=== PATIENT | male | born 1940 | race Caucasian/White ===

== ENCOUNTER 2020-05-12 10:34 | Outpatient (CLI) | payer MEDICARE, SELFPAY ==
--- NOTE | ~2020-05-12 | US_ITS ---
EXAMINATION: US venous doppler LE DATE: 05/12/2020 11:04 INDICATION: Right lower limb swelling TECHNIQUE: Grayscale ultrasound images without and with compression and Doppler ultrasound images of the right lower extremity veins were obtained. COMPARISON: None. FINDINGS: The visualized portions of right common femoral vein, profunda (deep) femoral vein, femoral vein, pop liteal vein, peroneal trunk, posterior tibial veins, peroneal veins, gastrocnemius vein and greater s aphenous vein outflow are patent. IMPRESSION: 1. No deep venous thrombosis in the right lower limb. Reviewed, dictated and finalized at location B. OPENER
== END 2020-05-12 10:35 | disposition home or self-care (01) ==
PROVIDERS: Family Provider Internal Medicine; PCP Internal Medicine; Visit Provider Internal Medicine
DX: M79.89 Other specified soft tissue disorders (principal)
CPT/HCPCS: 93971

== ENCOUNTER 2020-12-03 08:59 | Emergency (ER) | payer MEDICARE, SELFPAY ==
--- NOTE | ~2020-12-03 | XR_ITS ---
EXAMINATION: XR hand LT min 3V, XR wrist LT min 3V DATE: 12/03/2020 10:30 INDICATION: Left hand and wrist pain and swelling post fall TECHNIQUE: 1. Posteroanterior, ulnar deviation, oblique, and lateral views of the left wrist were obtained. 2. Dorsal palmar, oblique and lateral views of the left hand were obtained. COMPARISON: None. FINDINGS: Comminuted intra-articular fracture of the distal left radius. The the distal articular surface. Divi ded into dorsal and volar sided fragments which are impacted with mild dorsal and volar displacement respectively resulting in approximately 3 mm wide fracture gap along the articular surface best appre ciated on the lateral projection. There is an additional nondisplaced fracture extending across the s caphoid waist. There is a small bone fragment at the dorsal aspect of the carpus in location typical for a dorsal triquetral fracture at the fragment has relatively smooth margins and is unclear whether this is acute or chronic. Polyarticular osteoarthritis at the left hand and wrist, severe at the fir st carpometacarpal joint and multiple interphalangeal joints and moderate severity at the distal radi oulnar, wrist, triscaphe and multiple metacarpophalangeal and remaining interphalangeal joints. Diffu se osteopenia. Prominent soft tissue swelling about the left hand and wrist. IMPRESSION: 1. Comminuted intra-articular fracture of the distal left radius with mild displacement resulting in a 3 mm fracture gap at the articular surface. 2. Nondisplaced fracture across the scaphoid waist. 3. Additional age-indeterminate fracture likely at the dorsum of the triquetrum. 4. 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 Reviewed, dictated and finalized at location A. IMPRESSION: 1. Comminuted intra-articular fracture of the distal left radius with mild disp lacement resulting in a 3 mm fracture gap at the articular surface. 2. Nondisplaced fracture across the scaphoid waist. 3. Additional age-indeterminate fracture likely at the dorsum of the triquetrum . 4. 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
--- NOTE | ~2020-12-03 | XR_ITS ---
XR shoulder LT min 2V 12/03/2020 10:30 Indication: Left shoulder pain after fall Procedure: 4 views left shoulder Comparison: No prior studies for comparison. Findings: No acute fracture, subluxation or dislocation. There is polyarticular osteoarthritis of the left shoulder. Osteopenia. No significant soft tissue abnormality. No foreign bodies. Impression: 1: No acute fracture. Reviewed, dictated and finalized at location A. Impression: 1: No acute fracture.
[2020-12-03 09:11] VITALS: BP 152/92; PULSE 77; RESP 16; TEMP 36.6; O2SAT 97
--- NOTE | 2020-12-03 10:23 | ED.GENADULT ---
HPI - General Adult General Chief complaint: Fall <Vic Casillas PA-C - Last Filed: 12/03/20 13:15> Stated complaint: fall, L arm pain <Vic Casillas PA-C - Last Filed: 12/03/20 13:15> Time Seen by Provider: 12/03/20 10:21 <Vic Casillas PA-C - Last Filed: 12/03/20 13:15> History of Present Illness HPI narrative: Patient is a 80-year-old male who comes the emergency room today complaining of pain in left wrist and hand after mechanical fall yesterday evening. Patient reports that yesterday evening around 8:00 PM he was walking up the stairs when he tripped and lost his balance and fell backwards. He believes he tried catching himself on his left hand but is not for sure. He fell down 4 stairs. Did not hit his head. Did not lose consciousness. He is not on blood thinners. He is having pain in his left hand and wrist and some mild pain in his left shoulder. Chest pain, shortness of breath, nausea, vomiting or any other symptoms or concerns. <Vic Casillas PA-C - Last Filed: 12/03/20 13:15> Related Data Home medications: Home Medications Medication Instructions Recorded Confirmed ascorbic acid (vitamin C) 250 mg 250 mg PO DAILY 04/12/19 11/17/20 tablet aspirin 81 mg tablet,delayed 81 mg PO DAILY 04/12/19 11/17/20 release calcium polycarbophil 625 mg tablet 1,250 mg PO DAILY 04/12/19 11/17/20 cholecalciferol (vitamin D3) 50 2,000 unit PO DAILY 04/12/19 11/17/20 mcg (2,000 unit) tablet magnesium 250 mg tablet 500 mg PO DAILY tablet 04/12/19 11/17/20 omega-3 fatty acids 1,000 mg 1,000 mg PO BID 04/12/19 11/17/20 capsule Saccharomyces boulardii 250 mg 250 mg PO DAILY cap 11/04/20 11/17/20 capsule multivitamin 1 tablet PO DAILY 11/04/20 11/17/20 niacin 250 mg tablet 500 mg PO DAILY tablet 11/04/20 11/17/20 trazodone 50 mg tablet 50 mg PO .At HS PRN tablet 11/04/20 11/17/20 vit C 250 mg-vit E 200 unit-zinc cap PO DAILY cap 11/04/20 11/17/20 ox 12.5 [id number] capsule <Vic Casillas PA-C Last Filed: 12/03/20 13:15> Allergies/adverse reactions: Allergies Allergy/AdvReac Type Severity Reaction Status Date / Time No Known Allergies Allergy Verified 12/03/20 09:22 <Vic Casillas PA-C - Last Filed: 12/03/20 13:15> Review of Systems Constitutional: Constitutional: Reports as per HPI, Denies fever(s), Denies night sweats and Denies weakness <ANTON Burr Last Filed: 12/03/20 13:15> Cardiovascular: Cardiovascular: Denies chest pain, Denies edema, Denies leg edema, Denies dyspnea and Denies orthopnea <Vic Casillas PA-C - Last Filed: 12/03/20 13:15> Respiratory: Respiratory: Denies cough and Denies dyspnea <Vic Casillas PA-C Last Filed: 12/03/20 13:15> Gastrointestinal: Gastrointestinal: Denies abdominal pain, Denies constipation, Denies diarrhea, Denies nausea and Denies vomiting <ANTON Burr Last Filed: 12/03/20 13:15> Musculoskeletal: Musculoskeletal: Denies abnormal gait, Denies back pain, Denies numbness and Denies tingling <ANTON Burr Last Filed: 12/03/20 13:15> Comments: See HPI <ANTON Burr Last Filed: 12/03/20 13:15> Neurologic: Denies Abnormal speech present, Denies abnormal gait, Denies numbness, Denies tingling and Denies weakness <ANTON Burr Last Filed: 12/03/20 13:15> Psychiatric: Psychiatric: Denies homicidal ideation and Denies suicidal ideation <Vic Casillas PA-C - Last Filed: 12/03/20 13:15> [facility] Family History Family History: Family History Father Hypertension Cerebrovascular accident Asthma Family history of heart disease in male family member before age 55 Family history of arthritis Mother Hypertension Family history of heart disease in male family member before age 55 Family history of dementia Family his
[2020-12-03] MEDS: IBUPROFEN 600 MG TABLET PO (11:54)
== END 2020-12-03 13:28 | disposition home or self-care (01) ==
PROVIDERS: Emergency Provider Emergency Medicine; PCP Internal Medicine
DX: S52.572A Other intraarticular fracture of lower end of left radius, initial encounter for closed fracture (principal); S62.025A Nondisplaced fracture of middle third of navicular [scaphoid] bone of left wrist, initial encounter for closed fracture; Z79.82 Long term (current) use of aspirin; Z87.891 Personal history of nicotine dependence; M19.042 Primary osteoarthritis, left hand; M19.032 Primary osteoarthritis, left wrist; W10.9XXA Fall (on) (from) unspecified stairs and steps, initial encounter
CPT/HCPCS: 29125; 73030; 73110; 73130; 99284; A9270

== ENCOUNTER 2020-12-08 08:13 | Outpatient (CLI) | payer MEDICARE, SELFPAY ==
--- NOTE | ~2020-12-08 | NM_ITS ---
EXAMINATION: NM mili stress w perfusion DATE: 12/08/2020 13:14 INDICATION: Localized edema. TECHNIQUE: Rest images were obtained following intravenous administration of 10.4 mCi Tc99m tetrofosm in (Myoview). The patient was infused intravenously with Lexiscan (regadenoson). Then, 32.2 mCi Tc99m tetrofosmin (Myoview) was administered intravenously, and stress images were obtained. Data was terrie nstructed into short axis and horizontal and vertical long axis SPECT images. Gated SPECT images were also obtained. COMPARISON: Myocardial perfusion imaging 07/18/2006 FINDINGS: There is no definite reversible or fixed perfusion abnormality to suggest ischemia or infar ction. There is no segmental wall motion abnormality. Left ventricular ejection fraction measures > 70%. IMPRESSION: 1. No definite ischemia or infarct. 2. Normal left ventricular ejection fraction measuring >70%. Reviewed, dictated and finalized at location A.
--- NOTE | 2020-12-08 09:25 | EST_ITS ---
Patient Info Name: Vladimir Ferguson Age: 80 years : 1940 Gender: Male Ht: 73 in Wt: 213 lbs BSA: 2.25 m2 Exam Date: 12/08/2020 9:38 AM Exam Location: [facility] Stress Patient Status: Outpatient Admit Date: 12/08/2020 Staff Ordering Physician: Ange Zhu Attending Provider: Ange Zhu Exercise Technologist: Kat Godinez RDCS Exercise Physician: Eric Paniagua DO Exam Type: CA stress mili w NM Study Info Indications R60.0 - Localized edema A regadenoson stress test was performed. Summary 1. 1. Negative lexiscan stress test for ischemic ST changes by ECG criteria. 2. 2. Baseline hypertension. 3. 3. Nuclear scan to follow and will be reported separately. Please correlate with it. 4. 4. Patient informed of the above results. Protocol: Lexiscan Stress ECG Details Stage: REST Duration (min): 6 min : 42 sec HR (bpm): 74 SBP (mmHg): 165 DBP (mmHg): 93 Stage: REST Duration (min): 10 min : 9 sec HR (bpm): 69 SBP (mmHg): 165 DBP (mmHg): 93 Stage: STAGE 1 Duration (min): 1 min : 0 sec HR (bpm): 68 SBP (mmHg): 161 DBP (mmHg): 90 Stage: RECOVERY Duration (min): 1 min : 0 sec HR (bpm): 87 SBP (mmHg): 128 DBP (mmHg): 81 Stage: RECOVERY Duration (min): 2 min : 0 sec HR (bpm): 92 SBP (mmHg): 128 DBP (mmHg): 81 Stage: RECOVERY Duration (min): 3 min : 0 sec HR (bpm): 91 SBP (mmHg): 143 DBP (mmHg): 78 Stage: RECOVERY Duration (min): 4 min : 0 sec HR (bpm): 90 SBP (mmHg): 143 DBP (mmHg): 78 Stage: RECOVERY Duration (min): 5 min : 0 sec HR (bpm): 95 SBP (mmHg): 144 DBP (mmHg): 79 Stage: RECOVERY Duration (min): 5 min : 33 sec HR (bpm): 87 SBP (mmHg): 144 DBP (mmHg): 79 Rest HR: 69 bpm Peak HR: 95 bpm Rest Sys BP: 165 mmHg Peak Sys BP: 161 mmHg Max Pred HR: 141 bpm % Max Pred HR: 67 % Target HR: 120 bpm Max RPP: 15,295 bpm*mmHg Termination Reason: Completed protocol Cardiac Symptoms: None Total Time: 1 min : 0 sec Rest Rosa BP: 93 mmHg Peak Rosa BP: 90 mmHg Total Dose: 0.4 mg Resting ECG Sinus rhythm, IRBBB. Stress ECG No ST changes. Arrhythmias None. Report Signatures
== END 2020-12-08 08:14 | disposition home or self-care (01) ==
PROVIDERS: PCP Internal Medicine; Visit Provider Nurse Practitioner
DX: R60.0 Localized edema (principal); M79.89 Other specified soft tissue disorders
CPT/HCPCS: 78452; 93017; A9502; J2785

== ENCOUNTER 2020-12-29 13:19 | Outpatient (CLI) | payer MEDICARE, SELFPAY ==
--- NOTE | ~2020-12-29 | MMUS_ITS ---
EXAMINATION: MM diagnostic mammo unilat RT, US breast RT limited HISTORY: Palpable right breast abnormality. TECHNIQUE: Additional 3-D tomosynthesis images of the right breast were performed and synthetic 2-D i mages were generated. CAD analysis was submitted and interpreted. High resolution right breast ultras ound was performed. COMPARISON: No prior studies for comparison BREAST PARENCHYMAL COMPOSITION: Breast composed of scattered areas of fibroglandular density. FINDINGS: MAMMOGRAPHIC FINDINGS: No suspicious masses, calcifications or architectural distortion in the right breast. Comparison left MLO view is unremarkable. There is asymmetric gynecomastia. ULTRASOUND: Right breast ultrasound: Normal heterogeneous echotexture without focal mass. IMPRESSION: 1. No evidence for malignancy in the right breast. BI-RADS CATEGORY 1 - NEGATIVE Reviewed, dictated and finalized at location A. IMPRESSION: 1. No evidence for malignancy in the right breast. BI-RADS CATEGORY 1 - NEGATIVE
== END 2020-12-29 13:20 | disposition home or self-care (01) ==
PROVIDERS: PCP Internal Medicine; Visit Provider Nurse Practitioner
DX: R92.8 Other abnormal and inconclusive findings on diagnostic imaging of breast (principal)
CPT/HCPCS: 76642; 77065

== ENCOUNTER 2022-12-20 13:27 | Outpatient (CLI) | payer MEDICARE, SELFPAY ==
--- NOTE | ~2022-12-20 | MMUS_ITS ---
EXAMINATION: MM diagnostic facundo LT w misti, US breast LT complete HISTORY: Left breast pain TECHNIQUE: Bilateral MLO and left CC 3-D tomosynthesis images were performed and synthetic 2-D images were generated. CAD analysis was submitted and interpreted. High resolution complete left breast ult rasound examination including all 4 quadrants and subareolar area was performed. COMPARISON: 12/29/2020 diagnostic mammogram and limited right breast ultrasound BREAST PARENCHYMAL COMPOSITION: The left breast is heterogeneously dense, which may obscure small mas ses. FINDINGS: MAMMOGRAPHIC FINDINGS: There is thyroiditis stroma in the subareolar left breast, increased in prominence compared to the ri ght, the new finding on the left since 12/29/2020. No suspicious mass or architectural distortion, mal ignant calcification, skin thickening or retraction is detected. ULTRASOUND: There is thyroiditis stroma in the subareolar left breast reported no suspicious mass or shadowing is detected. IMPRESSION: Bilateral gynecomastia, left more prominent than right. No mammographic or sonographic evidence of ma lignancy BI-RADS Category 2: Benign finding(s). Reviewed, dictated and finalized at location A. IMPRESSION: Bilateral gynecomastia, left more prominent than right. No mammographic or sono graphic evidence of malignancy BI-RADS Category 2: Benign finding(s).
== END 2022-12-20 13:28 | disposition home or self-care (01) ==
PROVIDERS: PCP Nurse Practitioner Family; Visit Provider Nurse Practitioner Family
DX: N64.4 Mastodynia (principal); N63.20 Unspecified lump in the left breast, unspecified quadrant
CPT/HCPCS: 76641; 77061; 77065; G0279

== ENCOUNTER 2024-11-11 08:21 | Outpatient (CLI) | payer MEDICARE, SELFPAY ==
--- NOTE | ~2024-11-11 | US_ITS ---
US arterial ankle brachial ind INDICATION: Open wound. Hypertension. Ulcerations. Thick toenails. Loss of hair. TECHNIQUE: Segmental pressures and plethysmographic and Doppler waveforms of the brachial and lower e xtremity arteries were obtained. COMPARISON: None. FINDINGS: Right and left brachial artery pressures of 125 mm Hg and 123 mm Hg, respectively, are concordant (no rmal difference <= 30 mmHg). The right ankle-brachial index (HAIM) is 1.34 (normal >= 0.9-1.0). The right great toe-brachial index (TBI) is 0.84 (normal >= 0.60). The left HAIM is 1.54. The left TBI is 0.84. IMPRESSION: 1. Normal ankle-brachial indices. Reviewed, dictated and finalized at location B.
--- OUTSIDE RECORDS SUMMARY | 2024-11-11 08:27 | XMS_ITS | Encounter Summary ---
Author Organization [facility] Address [facility] [place] [address] Care Team Providers Care [employer] Police Lieutenant Name Role Phone Orquidea Lauren MONA Primary Care Provider [phone] Encounter Details Date Type Department Care Team (Late st Contact Info) Description 09/26/2023 Prep for Procedure [facility] [address] [place] [address] [place] [address] [facility] [address] [place] [address] Social History Tobacco Use Types Packs/Day Years Used Date Smoking Tobacco: Never Smokeless Tobacco: Never Alcohol Use Standard Drinks/Week Comments Never 0 (1 standard drink = 0.6 oz pur e alcohol) Sex and Gender Information Value Date Recorded Sex Assigned at Male 05/24/2024 9:32 AM 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 Legal Sex Male 11:21 AM CDT Gender Identity Male 05/24/2024 9:32 AM 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 Sexual Orientation Not on file documented as of this encounter Plan of Treatment Not on file documented as of this encounter Results * MRSA SCREENING (09/26/2023 2:49 PM CDT) SPEC DESCRIPTION NASAL 09/26/2023 2:48 PM CDT [facility] SPECIAL REQUESTS NO SPECIAL REQUEST 09/26/2023 2:48 PM CDT [facility] CULTURE RESULT NO METHICILLIN RESISTANT STAPHYLOCOCCUS AUREUS ISOLATED 09/27/2023 2:21 PM CDT [facility] SPECIMEN FROM INTERNAL NOSE / Unknown 09/26/2023 2:49 PM CDT 09/26/2023 2:50 PM CDT us Ruben Denis MD MICROBIOLOGY - GENERAL ORDERABLE S Final Result [facility] [address] [place] [address], documented in this encounter Visit Diagnoses Diagnosis Preop testing- Primary Preoperative examination, unspecified documented in this encounter Care Teams [employer] Police Lieutenant Relationship Specialty Start Date End Date Orquidea Lauren NP [address] [place] [address] PCP - General Nurse Practitioner Family 01/11/23 documented as of this encounter
--- OUTSIDE RECORDS SUMMARY | 2024-11-11 08:27 | XMS_ITS | Clinical Summary ---
Author Organization [facility] Address [address] [place] [address] Care Team Providers Care Rock Room Worker Name Role Phone Orquidea Lauren MONA Primary Care Provider [phone] Allergies No known active allergies Medications amLODIPine (NORVASC) 10 MG tablet Take 1 tablet (10 mg total) by mouth daily. Active pantoprazole EC (PROTONIX) 40 MG tablet Take 1 tablet (40 mg total) by mouth every morning. Active rosuvastatin (CRESTOR) 10 MG tablet Take 1 tablet (10 mg total) by mouth daily. Active Aspirin 81 MG Cap Take 81 mg by mouth daily. Active [place]-3 Fatty Acids (FISH OIL) 1200 MG Cap Take 1,200 mg by mouth daily. Active Multiple Vitamin (MULTIVITAMIN) capsule Take 1 capsule by mouth daily. Active Cholecalciferol 50 MCG (2000 UT) Tab Take 2,000 Units by mouth daily. Active furosemide (LASIX) 20 MG tablet Take 2 tablets (40 mg total) by mouth daily. Active potassium chloride CR (KLOR-CON M) 10 MEQ tablet Take 1 tablet (10 mEq total) by mouth 2 (two) times daily. Active Magnesium 500 MG Cap Take 500 mg by mouth daily. Active niacin 500 MG Tab Take 1 tablet (500 mg total) by mouth daily. Active probiotic (VSL #3) Pack Take 1 packet by mouth daily. Active Ascorbic Acid 250 MG Tab Take 250 mg by mouth daily. Active Multiple Vitamins-Minera ls (ICAPS AREDS 2 OR) Active clotrimazole-be tamethasone (LOTRISONE) cream Apply topically 2 (two) times daily. 4 Active potassium chloride CR (K-TAB) 10 MEQ Tab CR tablet Take 1 tablet (10 mEq total) by mouth daily. 4 Active furosemide (LASIX) 40 MG tablet Take 1 tablet (40 mg total) by mouth every morning. 4 Active Active Problems Problem Noted Date Diagnosed Date Achalasia 05/23/2024 Dysphagia 05/23/2024 Gastroesophageal reflux disease without esophagi tis 07/14/2018 Hyperlipidemia 07/14/2018 Hypertension 07/14/2018 Perforated gallbladder 07/10/2018 Social History Tobacco Use Types Packs/Day Years Used Date Smoking Tobacco: Never Smokeless Tobacco: Never Tobacco Cessation:Counseling Given: Not Answered Alcohol Use Standard Drinks/Week Comments Never 0 (1 standard drink = 0.6 oz pur e alcohol) PHQ-2 Answer Date Recorded Patient Health Questionnaire-2 Score 0 05/23/2024 Sex and Gender Information Value Date Recorded Sex Assigned at Male 05/24/2024 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 Legal Sex Male 11:21 AM CDT Gender Identity Male 05/24/2024 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 Sexual Orientation Not on file Last Filed Vital Signs Vital Sign Reading Time Taken Comments Blood Pressure 127/74 05/23/2024 2:05 PM COTTON INSPECTOR Pulse 66 05/23/2024 2:05 PM COTTON INSPECTOR Temperature 36.4 C (97.6 F) 05/23/2024 2:05 PM COTTON INSPECTOR Respiratory Rate 18 05/23/2024 2:05 PM COTTON INSPECTOR Oxygen Saturation 97% 05/23/2024 2:05 PM COTTON INSPECTOR Inhaled Oxygen Concentration - - Weight 97.5 kg (215 lb) 10/05/2023 7:28 AM CDT Height 182.9 cm (6') 10/05/2023 7:28 AM CDT Body Mass Index 29.16 10/05/2023 7:28 AM CDT Plan of Treatment Health Maintenance Due Date Last Done Comments DTaP, Tdap and Td Vaccines (1 - Tdap) 1959 Pneumococcal Vaccine: 50+ Years (1 of 1 - PCV) 10/13/1991 Annual Medicare Wellness Visit 2006 RSV Immunization or 60+ Years (1 - 1-dose 75+ series) 2016 COVID-19 Vaccine ( - season) 2023 04/12/2022, 04/08/2021, 07/27/2020, Additional history exists Zoster Vaccines Completed 05/20/2019, 03/18/2019 PHQ-2 (Physician [place]) Completed 05/23/2024 Meningococcal B Vaccine Aged Out No l onger eligible based on patient's age to complete this topic Meningococcal Vaccine Aged Out No josephine anastacia eligible based on patient's age to complete this topic RSV Immunizations Under 20 Months Aged Out No longer eligible based on patient's age to complete this topic Insurance AET[employer] Care Teams Rock Room Worker Relationship Specialty Start Date End Date Orquidea Lauren NP [address] [place] [address] PCP - General Nurse Practitioner Family 01/11/23
--- OUTSIDE RECORDS SUMMARY | 2024-11-11 08:27 | XMS_ITS | Clinical Summary ---
Author Organization [facility] Address [address] [address] Phone Care Team Providers Care Us Marketing Director Name Role Phone Roberth Cordon MD Primary Care Provider [phone] Allergies No known active allergies Medications amLODIPine (NORVASC) 10 MG Tablet Take 10 mg by mouth daily. Active Aspirin 81 MG Tablet Take 81 mg by mouth daily. Active rosuvastatin (CRESTOR) 10 MG Tablet Take 10 mg by mouth daily. Active polycarbophil calcium (FIBER LAXATIVE) 625 MG Tablet Take 625 mg by mouth daily. Active [place]-3 Fatty Acids (FISH OIL) 1200 MG Capsule Take 1,200 mg by mouth daily. Active Magnesium 500 MG Capsule Take 500 mg by mouth daily. Active Multiple Vitamin (MULTIVITAMINS) Capsule Take 1 Cap by mouth daily. Active niacin 500 MG Tablet Take 500 mg by mouth daily. Active pantoprazole (PROTONIX) 40 MG Tablet Delayed Response Take 40 mg by mouth daily. Active MAGNESIUM LACTATE PO Take 500 mg by mouth. Active Ascorbic Acid (VITAMIN C) 250 MG Tablet Take 250 mg by mouth daily. Active Multiple Vitamins-Minera ls (PRESERVISION AREDS 2 PO) Take by mouth daily. Active Cholecalciferol (VITAMIN D-3 SUPER STRENGTH) 2000 UNIT Tablet Take 2,000 Units by mouth daily. Active Dietary Management Product (VSL#3) Pack Take 1 Packet by mouth daily. Active HYDROcodone-nemo taminophen (NORCO) 5-325 MG Tablet Take 1 Tab by mouth every 6 hours as needed for Moderate or more severe pain. 30 Tab 9 Active Additional Information Patient not taking.Reported on 07/18/2018 Active Problems Problem Noted Date Diagnosed Date Hypertension 07/14/2018 Hyperlipidemia 07/14/2018 Gastroesophageal reflux disease without esophagi tis 07/14/2018 Perforated gallbladder 07/10/2018 Achalasia Dysphagia Family History Medical History Relation Name Comments Asthma Father Heart Disease Mother Hypertension Mother Relation Name Status Comments Father Mother Social History Tobacco Use Types Packs/Day Years Used Date Smoking Tobacco: Former Cigarettes 1 [phone] Smokeless Tobacco: Never Alcohol Use Standard Drinks/Week Comments No 0 (1 standard drink = 0.6 oz pur e alcohol) Sex and Gender Information Value Date Recorded Sex Assigned at Not on file Legal Sex Male 9:29 PM CDT Gender Identity Not on file Sexual Orientation Not on file Last Filed Vital Signs Vital Sign Reading Time Taken Comments Blood Pressure 122/78 08/15/2018 1:01 PM CDT Pulse 65 08/15/2018 1:01 PM CDT Temperature 35.8 C (96.4 F) 08/15/2018 1:01 PM CDT Respiratory Rate 16 08/15/2018 1:01 PM CDT Oxygen Saturation 96% 08/15/2018 1:01 PM CDT Inhaled Oxygen Concentration - - Weight 92.5 kg (204 lb) 08/15/2018 1:01 PM CDT Height 182.9 cm (6') 08/15/2018 1:01 PM CDT Body Mass Index 27.67 08/15/2018 1:01 PM CDT Plan of Treatment Health Maintenance Due Date Last Done Comments TdaP Immunization 1940 Pneumococcal Immunization (5 0+ years) (1 of 1 - PCV) 10/13/1991 Zoster Immunization (1 of 2) 10/13/1991 Respiratory Syncytial Virus (RSV) Immunization (Adult) (1 - 1-dose 75+ series) 2016 SARS-COV-2 Immunization (4 - 2023- season) 2023 04/08/2021, 07/27/2020, 06/30/2020 Influenza Immunization (#1) 2024 Hepatitis C Virus (HCV) Screening Completed 06/25/2018 Hepatitis B Immunization Aged Out No longer eligible based on patient's age to complete this topic Human Papillomavirus (HPV) Immunization Aged Out No longer eligible b ased on patient's age to complete this topic Meningococcal Immunization (ACWY) Aged Out No longer eligible b ased on patient's age to complete this topic Rotavirus Immunization Aged Out No lo nger eligible based on patient's age to complete this topic Procedures Procedure Name Priority Date/Time Associated Diagnosis Comments HEPATITIS PANEL ACUTE (AHP) Routine 06/25/2018 Elevated bilirubin Gallstones Other fatigue from Last 3 Months or Most Recently Relevant to Health Maintenance Results * HEPATITIS PANEL ACUTE (AHP) (06/25/2018) Blood specimen (specimen) Kenyetta Garcia HOUSEFELLOW, BENEFITS SALES CONSULTANT HEMATOLOGY ORDERA BLES Final Result from Last 3 Months or Most Recently Relevant to Health Maintenance Advance Directives * Full Code (Latest Code Status on File) Date Activated Date Inactivated Comments 07/10/2018 8:31 AM 07/13/2018 7:31 PM CPR-Full [place] atment: FULL ARREST: Attempt Resuscitation/CPR wit intubation and mechanical ventilation. PRE-ARREST: Use entire range of life support measures to stabilize the patient. Care Teams Us Marketing Director Relationship Specialty Start Date End Date Roberth Cordon MD PCP - General Internal Medicine 07/25/17
== END 2024-11-11 08:22 | disposition home or self-care (01) ==
PROVIDERS: PCP Nurse Practitioner Family; Visit Provider Nurse Practitioner Family
DX: I70.25 Atherosclerosis of native arteries of other extremities with ulceration (principal); I70.219 Atherosclerosis of native arteries of extremities with intermittent claudication, unspecified extremity
CPT/HCPCS: 93922